=== PATIENT | male | born 1980 | race Asian ===

== ENCOUNTER 2019-02-26 20:56 | Emergency (ER) | payer OTHER ==
[~2019-02-26] VITALS: Ht 167.6 cm; Wt 79.5 kg
[2019-02-26] MEDS ORDERED: PERTUSS(ACELL),DIPH,TET VAC/PF 0.5 ML VIAL IM ONE (22:15)
[2019-02-26] MEDS ORDERED: RABIES VAC,PF CHICK-EMB CELL 2.5 UNITS/ML SYRINGE IM ONE (22:15)
[2019-02-26] MEDS ORDERED: RABIES IMMUNE GLOBULIN/PF 300 UNITS/ML 5 ML VIAL IM ONE (22:15)
[2019-02-26] MEDS ORDERED: AMOX TR/POT CLAV 875 MG/125 MG TABLET PO ONE (22:15)
[2019-02-27 00:53] VITALS: BP 130/80
== END 2019-02-27 00:25 | disposition home or self-care (01) ==
LOC: EMS 20:58
DX: S61.451A Open bite of right hand, initial encounter (principal); F17.210 Nicotine dependence, cigarettes, uncomplicated; Z23 Encounter for immunization; W55.01XA Bitten by cat, initial encounter; Y93.89 Activity, other specified; Y92.89 Other specified places as the place of occurrence of the external cause; Y99.8 Other external cause status
CPT/HCPCS: 90375; 90471; 90472; 90675; 90715; 96372

== ENCOUNTER 2019-03-01 17:17 | Emergency (ER) | payer OTHER ==
[~2019-03-01] VITALS: Ht 167.6 cm; Wt 84.1 kg
[2019-03-01 18:10] VITALS: BP 125/89
[2019-03-01] MEDS ORDERED: RABIES IMMUNE GLOBULIN/PF 300 UNITS/ML 5 ML VIAL IM ONE (18:15)
== END 2019-03-01 18:35 | disposition home or self-care (01) ==
LOC: EMS 17:19
DX: S61.451A Open bite of right hand, initial encounter (principal); F17.210 Nicotine dependence, cigarettes, uncomplicated; W55.01XA Bitten by cat, initial encounter; Y93.89 Activity, other specified; Y92.89 Other specified places as the place of occurrence of the external cause; Y99.8 Other external cause status
CPT/HCPCS: 90375